=== PATIENT | female | born 1945 | race Caucasian/White ===

== ENCOUNTER 2017-05-13 11:10 | Outpatient (CLI) | payer OTHER | END 2017-05-13 11:26 | disposition home or self-care (01) | LOC: LAB 11:10 | DX: D51.0 Vitamin B12 deficiency anemia due to intrinsic factor deficiency (principal); D51.1 Vitamin B12 deficiency anemia due to selective vitamin B12 malabsorption with proteinuria; D51.3 Other dietary vitamin B12 deficiency anemia; I10 Essential (primary) hypertension; D50.8 Other iron deficiency anemias; D51.8 Other vitamin B12 deficiency anemias; E55.9 Vitamin D deficiency, unspecified; K90.89 Other intestinal malabsorption; E03.8 Other specified hypothyroidism; R97.0 Elevated carcinoembryonic antigen [CEA]; R97.8 Other abnormal tumor markers ==

== ENCOUNTER 2022-10-09 06:05 | Day surgery (SDC) | payer OTHER ==
[~2022-10-09 06:05] MED LIST: B12 ACTIVE1000 MCG PO; D3 + K2 DOTS 11 EACH PO; LOSARTAN POTAS100 MG PO; RAZADYNE ER16 MG PO; TOPROL XL25 M1 PO; ZOCOR40 MG PO
[2022-10-09] MEDS ORDERED: PERCOCET 5-3251 EACH PO (10:33)
== END 2022-10-09 15:10 | disposition home or self-care (01) ==
LOC: CIR.AMB 06:05
PROVIDERS: ATTEND Surgery
DX: D35.1 Benign neoplasm of parathyroid gland (principal); E21.0 Primary hyperparathyroidism; Z20.822 Contact with and (suspected) exposure to COVID-19